=== PATIENT | female | born 1985 | race Caucasian/White ===

== ENCOUNTER 2018-05-02 09:06 | Emergency (ER) | payer MEDICARE, MEDICAID ==
[2018-05-02] MEDS ORDERED: ACETAMINOPHEN 325 MG TABLET PO ONE (10:16)
--- NOTE | 2018-05-02 10:20 | ER Document Report ---
ED Head/Face/Scalp Injury - General Chief Complaint: Facial Injury Stated Complaint: FALL Time Seen by Provider: 05/02/18 10:00 Mode of Arrival: Wheelchair Information source: Friend - Caregiver, Outside Facility Records Cannot obtain history due to: Mentally challenged Notes: Patient presents with her caregiver after a fall. Patient was sitting on the toilet and care provider turned around and she had fallen forward hitting her nose on the bathtub. There was no loss of consciousness, no nausea or vomiting. Patient did not have any seizure like movements. Patient's mentation is at her baseline per her care provider. Patient did have a nosebleed after the fall. No active bleeding at this time. 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 TRAVEL OUTSIDE OF THE [place] IN LAST 30 DAYS: No - HPI Patient complains to provider of: Injury Injury to: Nose Occurred: Just prior to arrival Where: Home Timing: Still present Context: Fell Loss consciousness: No loss of consciousness - Related Data Allergies/Adverse Reactions: Sulfa (Sulfonamide Antibiotics) Allergy (Verified 05/02/18 09:09) Past Medical History - General Information source: Outside Facility Records Cannot obtain history due to: Mentally challenged - Care provider - Social History Smoking Status: Never Smoker Frequency of alcohol use: None Drug Abuse: None Lives with: [facility] Family History: None Patient has suicidal ideation: No Patient has homicidal ideation: No - Medical History Medical History: Other - MR Neurological Medical History: Reports: Hx Seizures, Other - Parkinson-like dystonia Past Surgical History: Reports: Hx Hysterectomy - Immunizations Immunizations up to date: Yes Hx Diphtheria, Pertussis, Tetanus Vaccination: No Review of Systems - Review of Systems -: Yes ROS unobtainable due to patient's medical condition Constitutional: denies: Fever, Recent illness Physical Exam - Vital signs Vitals: Pulse Resp BP Pulse Ox 80 18 119/69 100 05/02/18 09:12 05/02/18 09:12 05/02/18 09:12 05/02/18 09:12 - General General appearance: Appears well, Alert In distress: None - HEENT Head: Normocephalic, Atraumatic Eyes: Normal Conjunctiva: Normal Extraocular movements intact: Yes Pupils: PERRL Sinus: Swelling - left maxillary swelling Nasal: Bloody discharge, Swelling Mouth/Lips: Normal. No: Dental fracture Mucous membranes: Normal Neck: Normal, Supple. No: Lymphadenopathy - Respiratory Respiratory status: No respiratory distress Chest status: Nontender Breath sounds: Normal Chest palpation: Normal - Cardiovascular Rhythm: Regular Heart sounds: S1 appreciated, S2 appreciated Murmur: No - Back Back: Normal, Nontender. No: Deformity/step-off, Vertebra tenderness - Extremities General upper extremity: Normal inspection General lower extremity: Normal inspection - Neurological Cognition: Normal, Other - pt at baseline per caregiver - Skin Skin Temperature: Warm Skin Moisture: Dry Skin Color: Normal Course - Re-evaluation Re-evalutation: 05/02/18 11:[address] Bach regarding diagnostic evaluations, agrees with planned work up. 05/02/18 CAT scan reports reviewed, no noted fracture. The patient continues at her baseline mentation. No bleeding noted from nostril. Care provider advised on management after a nose injury including not blowing the nose or picking the nose. Care provider encouraged to follow-up with her primary doctor for recheck. - Vital Signs Vital signs: Temp Pulse Resp BP Pulse Ox 88 16 108/77 100 05/02/18 11:46 05/02/18 11:46 05/02/18 11:46 05/02/18 11:46 - Diagnostic Test Radiology reviewed: Reports reviewed Discharge - Discharge Clinical Impression: Fall Qualifiers: Encounter type: initial encounter Qualified Code(s): W19.XXXA - Unspecified fall, initial encounter Nasal injury Qualifiers: Encounter type: initial encounter Qualified Code(s): S09.92XA - Unspecified injury of nose, initial encounter Condition: Stable Disposition: HOME, SELF-CARE Instructions: Acetaminophen, Head Injury Precautions ([facility]), Injured Nose ([facility]) Additional Instructions: Return immediately for any new or worsening symptoms Followup with your primary care provider, call tomorrow to make a followup appointment Take Tylenol [id number] for pain relief Referrals: NEY GILLIAM, TIN POURER-C [COMMUNITY BASED STAFF] - Follow up tomorrow
--- NOTE | 2018-05-02 11:10 | RADIOLOGY REPORT (SQ) ---
EXAM DESCRIPTION: CT CERVICAL SPINE WITHOUT COMPLETED DATE/TIME: 05/02/2018 10:37 am REASON FOR STUDY: fall, facial injury COMPARISON: None. TECHNIQUE: Axial images acquired through the cervical spine without intravenous contrast. Images re viewed with lung, soft tissue and bone windows. Reconstructed coronal and sagittal MPR images review ed. Images stored on PACS. All CT scanners at this facility use dose modulation, iterative reconstruction, and/or weight based d osing when appropriate to reduce radiation dose to as low as reasonably achievable (ALARA). [facility]: Dose Right [facility]: CareDose [facility]: Dose Right [facility]: Teradose 4D [facility]: [employer] RADIATION DOSE: CT Rad equipment meets quality standard of care and radiation dose reduction techniq ues were employed. CTDIvol: 22.6 mGy. DLP: 392 mGy-cm. mGy. LIMITATIONS: None. FINDINGS: ALIGNMENT: Anatomic. MINERALIZATION: Normal. VERTEBRAL BODIES: No fractures or dislocation. DISCS: No significant disc disease. FACETS, LATERAL MASSES, POSTERIOR ELEMENTS: No fractures. No dislocation. No acute findings. HARDWARE: None in the spine. VISUALIZED RIBS: No fractures. LUNG APICES AND SOFT TISSUES: No significant or acute findings. OTHER: No other significant finding. IMPRESSION: NO ACUTE OR SIGNIFICANT FINDINGS IN THE CERVICAL SPINE. TECHNICAL DOCUMENTATION: JOB ID: [id number] Quality ID # [id number]: Final reports with documentation of one or more dose reduction techniques (e.g., Au tomated exposure control, adjustment of the mA and/or kV according to patient size, use of iterative reconstruction technique) 2010 [employer]- All Rights Reserved Reading location - IP/workstation name: [email or web address]
--- NOTE | 2018-05-02 11:13 | RADIOLOGY REPORT (SQ) ---
EXAM DESCRIPTION: CT FACIAL AREA WITHOUT COMPLETED DATE/TIME: 05/02/2018 10:37 am REASON FOR STUDY: fall, facial injury COMPARISON: None. TECHNIQUE: Noncontrasted images through the facial bones and orbits windowed for bone and soft tissu e. Additional coronal and sagittal reconstructed images reviewed. All images stored on PACS. All CT scanners at this facility use dose modulation, iterative reconstruction, and/or weight based d osing when appropriate to reduce radiation dose to as low as reasonably achievable (ALARA). [facility]: Dose Right [facility]: CareDose [facility]: Dose Right [facility]: Teradose 4D [facility]: [employer] RADIATION DOSE: CT Rad equipment meets quality standard of care and radiation dose reduction techniq ues were employed. CTDIvol: 30.4 mGy. DLP: 534 mGy-cm. mGy. LIMITATIONS: None. FINDINGS: FACIAL BONES: No fracture or bone lesion. ORBITS: Intact. No fracture. Symmetric intact globes and retroorbital soft tissues. PARANASAL SINUSES: Clear. No significant mucosal thickening, mass or fluid. No nasal polyps. Maxill rebecca sinus outlets are patent. SOFT TISSUES: No mass or edema. INFERIOR BRAIN: Limited view. No acute findings. OTHER: No other significant finding. IMPRESSION: NO ACUTE FINDINGS. TECHNICAL DOCUMENTATION: JOB ID: [id number] Quality ID # [id number]: Final reports with documentation of one or more dose reduction techniques (e.g., Au tomated exposure control, adjustment of the mA and/or kV according to patient size, use of iterative reconstruction technique) 2010 [employer]- All Rights Reserved Reading location - IP/workstation name: [email or web address]
[2018-05-02 11:47] VITALS: BP 108/77
== END 2018-05-02 11:46 | disposition home or self-care (01) ==
LOC: ER 09:06
DX: S09.92XA Unspecified injury of nose, initial encounter (principal); W18.12XA Fall from or off toilet with subsequent striking against object, initial encounter; Y92.002 Bathroom of unspecified non-institutional (private) residence as the place of occurrence of the external cause; Z88.2 Allergy status to sulfonamides; Z90.710 Acquired absence of both cervix and uterus
CPT/HCPCS: 99284; 70486; 72125; A9270